=== PATIENT | female | born 1955 | race Caucasian/White ===

== ENCOUNTER → 2016-05-06 | Outpatient (CLI) | payer OTHER ==
[~2016-05-06] MED LIST: 'XANAX0.25 MG PO; ADVAIR 250/501 EA INH; ALBUTEROL TX; ALBUTEROL0.09 MG/A2 IH; ALBUTEROL2.5 MG/0.5 INH; ALBUTEROL2.5 MG/0.5 NEB; AMLODIPINE BESY10 MG PO; AMOXIL500 MG PO; ASCRIPTIN325 MG PO; ASPIRIN325 MG PO; ASPIRIN81 M1 PO; AVELOX400 MG PO; BACTRIM DS 8001 TA1 PO; BUSPIRONE15 MG PO; CARDURA1 MG PO; CIPRO500 MG PO; CIPROFLOXACIN500 MG PO; CLARITIN10 MG PO; COREG25 MG PO; DARVOCET N 1001 TAB PO; DAYPRO600 M1 PO; DELTASONE10 MG PO; DOXYCYCLINE100 M3 PO; FENOFIBRATE160 MG PO; FIORICET 325 MG1 TAB PO; FLEXERIL10 MG PO; FLOVENT 110 M110 MCG INH; GLIPIZIDE PO; HYDROCODONE BIT1 T11 PO; KEFLEX500 MG PO; LEXAPRO10 MG PO; LISINOPRIL-HYDR1 TA2; LISINOPRIL/HCTZ1 TA4 PO; MEDROL DOSEPAK4 MG PO; MOTRIN800 MG PO; MULTIPLE VITAMI1 CAP PO; MULTIVITAMIN1 CTB PO; NICOTINE21 MG/24 H TD; NO MED LIST; OMEPRAZOLE40 MG PO; OMNICEF300 MG PO; OSCAL,OYSTER S500 MG PO; PEPCID20 MG PO; PRAVACHOL20 MG PO; PREDNICOT20 MG PO; PREDNISONE20 MG PO; PRILOSEC40 MG PO; PROAIR HFA0.09 MG/AC IH; PROVENTIL0.09 MG/AC IH; ROBAXIN750 MG PO; ROBITUSSIN AC 10 MG/ PO; ROBITUSSIN AC 110 ML PO; ROMYCIN5 MG/GM OP; SEPTRA DS 800 M1 TAB PO; SIMVASTATIN10 MG PO; SPIRIVA18 MCG IH; SPIRIVA18 MCG PO; SYMBICORT1 AE1 INH; TESSALON PERLE100 M1 PO; TESSALON PERLE200 MG PO; ULTRAM50 MG PO; VIBRAMYCIN100 MG PO; VICODIN 5/500 505 MG PO; VICODIN 500 MG-1 TAB PO; ZITHROMAX Z PA250 MG PO; ZITHROMAX250 MG PO; ZOCOR10 MG PO; ZOFRAN ODT4 MG SL; ZOFRAN4 MG PO; ZYRTEC10 M1 PO; Zofran4 MG PO
[2016-05-06 08:09] LABS: BUN 25 mg/dl (7-24); EST GLOM FILT AFRICAN AMERICAN > 60 ml/min
== END | disposition home or self-care (01) ==
LOC: LAB 07:39 → CT 08:00
PROVIDERS: Family Medicine
DX: R51 Headache (principal); Z85.3 Personal history of malignant neoplasm of breast

== ENCOUNTER → 2017-03-04 | Outpatient (CLI) | payer OTHER | END | disposition home or self-care (01) | LOC: MRI 13:59 | DX: M17.12 Unilateral primary osteoarthritis, left knee (principal) ==

== ENCOUNTER → 2017-04-09 | Outpatient (CLI) | payer OTHER | END | disposition home or self-care (01) | LOC: ORTHO 01:34 | DX: M17.12 Unilateral primary osteoarthritis, left knee (principal) ==

== ENCOUNTER → 2017-05-19 | Outpatient (CLI) | payer OTHER ==
[~2017-05-19] MED LIST changes: +HYCODAN/HYDROMET5 ML PO; +LEVAQUIN500 M2 PO; +MUCINEX1200 M1 PO; +PREDNISONE20 M1 PO
== END | disposition home or self-care (01) ==
LOC: RAD 09:19
DX: J40 Bronchitis, not specified as acute or chronic (principal); J44.9 Chronic obstructive pulmonary disease, unspecified; E11.9 Type 2 diabetes mellitus without complications; F17.200 Nicotine dependence, unspecified, uncomplicated

== ENCOUNTER 2017-05-20 09:13 | Emergency (ER) | payer OTHER ==
[~2017-05-20] VITALS: Ht 154.9 cm; Wt 90.3 kg
[~2017-05-20 09:13] MED LIST changes: -HYCODAN/HYDROMET5 ML PO; -LEVAQUIN500 M2 PO; -MUCINEX1200 M1 PO; -PREDNISONE20 M1 PO
[2017-05-20] MEDS ORDERED: LEVAQUIN500 M2 PO (09:36)
[2017-05-20] MEDS ORDERED: ALBUTEROL2.5 MG/0.5 INH (11:17)
[2017-05-20] MEDS ORDERED: PREDNISONE20 M1 PO (11:17)
[2017-05-20] MEDS ORDERED: TESSALON PERLE100 M1 PO (11:17)
[2017-05-21] MEDS ORDERED: HYCODAN/HYDROMET5 ML PO (19:57)
[2017-05-21] MEDS ORDERED: MUCINEX1200 M1 PO (19:57)
== END 2017-05-20 11:27 | disposition home or self-care (01) ==
LOC: ED 09:13
DX: J44.9 Chronic obstructive pulmonary disease, unspecified (principal); J40 Bronchitis, not specified as acute or chronic; Z91.041 Radiographic dye allergy status; Z88.8 Allergy status to other drugs, medicaments and biological substances; Z79.899 Other long term (current) drug therapy; Z79.82 Long term (current) use of aspirin

== ENCOUNTER 2017-05-21 19:28 | Emergency (ER) | payer OTHER ==
[~2017-05-21] VITALS: Ht 154.9 cm; Wt 90.3 kg
[~2017-05-21 19:28] MED LIST changes: +LEVAQUIN500 M2 PO; +PREDNISONE20 M1 PO
[2017-05-21] MEDS ORDERED: MUCINEX1200 M1 PO (19:57)
[2017-05-21] MEDS ORDERED: HYCODAN/HYDROMET5 ML PO (19:57)
== END 2017-05-21 20:06 | disposition home or self-care (01) ==
LOC: ED 19:28
DX: E11.65 Type 2 diabetes mellitus with hyperglycemia (principal); R05 Cough; F17.200 Nicotine dependence, unspecified, uncomplicated; Z79.82 Long term (current) use of aspirin; Z88.5 Allergy status to narcotic agent

== ENCOUNTER → 2017-06-02 | Outpatient (CLI) | payer OTHER ==
[~2017-06-02] MED LIST changes: +HYCODAN/HYDROMET5 ML PO; +MUCINEX1200 M1 PO
[2017-06-02 11:53] LABS: BILIRUBIN NEGATIVE (NEGATIVE); BLOOD NEGATIVE (NEGATIVE); CLARITY SL CLOUDY (CLEAR); COLOR YELLOW (YELLOW); GLUCOSE NEGATIVE (NEGATIVE); KETONE NEGATIVE (NEGATIVE); LEUKO ESTERASE NEGATIVE (NEGATIVE); NITRITE NEGATIVE (NEGATIVE); PH 5.5 (5.0-9.0); SPECIFIC GRAVITY 1.015 (1.005-1.030); UROBILINOGEN 0.2 E.U./dl (0.2-1.0)
[2017-06-02 12:03] LABS: BASO # 0.1 10*3/uL (0.0-0.1); BASO % 0.5 % (0.0-1.0); EOS # 0.2 10*3/uL (0.0-0.4); EOS % 1.9 % (1.0-4.0); LYMPH # 2.1 10*3/uL (1.3-4.4); MEAN CELL VOLUME 87.5 fl (81.0-99.0); MEAN CORPUSCULAR HGB 28.4 pg (27.0-31.0); MEAN CORPUSCULAR HGB CONC 32.5 g/dl (33.0-37.0); MEAN PLATELET VOLUME 10.8 fl (9.6-12.3); MONO # 0.8 10*3/uL (0.1-1.0); MONO % 7.5 % (3.0-9.0); NEUT # 7.7 10*3/uL (2.3-7.9); NEUT % 70.2 % (47.0-73.0); PLATELET COUNT AUTOMATED 245 10*3/uL (130-400); RED BLOOD COUNT 4.57 10*6/uL (4.10-5.10); RED CELL DISTRI WIDTH 14.2 % (0-14.5)
[2017-06-02 12:04] LABS: BACTERIA TRACE; EPITHELIAL CELLS 16-20; RBC 0-2 rbc/hpf (0-2)
[2017-06-02 12:26] LABS: ALBUMIN 3.5 gm/dl (3.1-4.5); ALKALINE PHOSPHATASE 90 U/L (45-117); BUN 23 mg/dl (7-24); CHLORIDE 104 mmol/L (98-107); CREATININE 0.96 mg/dL (0.55-1.02); POTASSIUM 4.5 mmol/L (3.5-5.1); SGOT/AST 19 IU/L (3-35); SGPT/ALT 29 U/L (12-78); SODIUM 138 mmol/L (136-145)
== END | disposition home or self-care (01) ==
LOC: LAB 09:57
PROVIDERS: Orthopaedic Surgery
DX: Z01.818 Encounter for other preprocedural examination (principal); S83.242A Other tear of medial meniscus, current injury, left knee, initial encounter; J45.909 Unspecified asthma, uncomplicated; J44.9 Chronic obstructive pulmonary disease, unspecified; X58.XXXA Exposure to other specified factors, initial encounter; Y93.89 Activity, other specified; Y92.89 Other specified places as the place of occurrence of the external cause; Y99.8 Other external cause status

== ENCOUNTER → 2017-06-19 | Day surgery (SDC) | payer OTHER ==
[~2017-06-19] MED LIST changes: +PERCOCET 5-3251 EACH PO; +ZOFRAN 4 MG ED2 TAB PO
[2017-06-19 08:00] VITALS: BP 157/86
[2017-06-19 11:20] VITALS: BP 153/80
[2017-06-19 11:35] VITALS: BP 133/69
[2017-06-19 11:50] VITALS: BP 155/67
[2017-06-19 12:05] VITALS: BP 161/75
[2017-06-19 12:20] VITALS: BP 144/74
== END | disposition home or self-care (01) ==
LOC: CANPRESDC → SDC 06-02 10:15
DX: S83.282A Other tear of lateral meniscus, current injury, left knee, initial encounter (principal); S83.242A Other tear of medial meniscus, current injury, left knee, initial encounter; X58.XXXA Exposure to other specified factors, initial encounter; Y93.89 Activity, other specified; Y92.89 Other specified places as the place of occurrence of the external cause; Y99.8 Other external cause status; M94.262 Chondromalacia, left knee; F17.210 Nicotine dependence, cigarettes, uncomplicated; I10 Essential (primary) hypertension; K21.9 Gastro-esophageal reflux disease without esophagitis; F41.9 Anxiety disorder, unspecified; E78.00 Pure hypercholesterolemia, unspecified; E11.9 Type 2 diabetes mellitus without complications; J43.9 Emphysema, unspecified; F32.9 Major depressive disorder, single episode, unspecified; Z90.710 Acquired absence of both cervix and uterus; Z82.49 Family history of ischemic heart disease and other diseases of the circulatory system

== ENCOUNTER 2017-07-13 10:07 | Emergency (ER) | payer OTHER ==
[~2017-07-13] VITALS: Ht 152.4 cm; Wt 118.8 kg
[2017-07-13] MEDS ORDERED: CEPHALEXIN500 M1 PO ×2 (10:20→11:01)
[2017-07-13] MEDS ORDERED: NYSTATIN CREAM15 GM T ×2 (10:20→11:01)
[2017-07-13] MEDS ORDERED: SEPTDS PO ×2 (10:20→11:01)
== END 2017-07-13 10:44 | disposition home or self-care (01) ==
LOC: ED 10:07
DX: N61.1 Abscess of the breast and nipple (principal); L30.4 Erythema intertrigo; I10 Essential (primary) hypertension; F17.200 Nicotine dependence, unspecified, uncomplicated; Z90.710 Acquired absence of both cervix and uterus; Z88.8 Allergy status to other drugs, medicaments and biological substances; Z91.018 Allergy to other foods

== ENCOUNTER 2017-09-14 09:53 | Emergency (ER) | payer OTHER ==
[~2017-09-14] VITALS: Wt 93.4 kg
[~2017-09-14 09:53] MED LIST changes: +CEPHALEXIN500 M1 PO; +NYSTATIN CREAM15 GM T; +SEPTDS PO
[2017-09-14 10:26] LABS: BASO # 0.1 10*3/uL (0.0-0.1); BASO % 0.6 % (0.0-1.0); EOS # 0.2 10*3/uL (0.0-0.4); EOS % 1.9 % (1.0-4.0); HEMATOCRIT 43.1 % (37.0-47.0); HEMOGLOBIN 13.9 g/dl (12.0-16.0); LYMPH # 1.5 10*3/uL (1.3-4.4); LYMPH % 19.7 % (27.0-41.0); MEAN CELL VOLUME 86.4 fl (81.0-99.0); MEAN CORPUSCULAR HGB 27.9 pg (27.0-31.0); MEAN CORPUSCULAR HGB CONC 32.3 g/dl (33.0-37.0); MEAN PLATELET VOLUME 10.7 fl (9.6-12.3); MONO # 0.7 10*3/uL (0.1-1.0); MONO % 8.4 % (3.0-9.0); NEUT # 5.3 10*3/uL (2.3-7.9); NEUT % 68.8 % (47.0-73.0); PLATELET COUNT AUTOMATED 207 10*3/uL (130-400); RED BLOOD COUNT 4.99 10*6/uL (4.10-5.10); RED CELL DISTRI WIDTH 13.7 % (0-14.5); WHITE BLOOD COUNT 7.8 10*3/uL (4.8-10.8)
[2017-09-14 10:41] LABS: ALBUMIN 3.6 gm/dl (3.1-4.5); ALKALINE PHOSPHATASE 114 U/L (45-117); BUN 22 mg/dl (7-24); CHLORIDE 103 mmol/L (98-107); CREATININE 0.86 mg/dL (0.55-1.02); POTASSIUM 4.4 mmol/L (3.5-5.1); SGOT/AST 14 IU/L (3-35); SGPT/ALT 29 U/L (12-78); SODIUM 139 mmol/L (136-145); TOTAL PROTEIN 6.9 gm/dL (6.4-8.2)
[2017-09-14] MEDS ORDERED: ZESTORETIC 20-1 EACH PO (10:59)
[2017-09-14] MEDS ORDERED: METFORMIN HCL500 MG PO (11:00)
== END 2017-09-14 11:14 | disposition home or self-care (01) ==
LOC: ED 09:53
PROVIDERS: Emergency Medicine
DX: I10 Essential (primary) hypertension (principal); J44.1 Chronic obstructive pulmonary disease with (acute) exacerbation; R73.9 Hyperglycemia, unspecified; Z88.5 Allergy status to narcotic agent; Z88.8 Allergy status to other drugs, medicaments and biological substances; Z91.041 Radiographic dye allergy status; Z79.84 Long term (current) use of oral hypoglycemic drugs; Z79.82 Long term (current) use of aspirin; Z79.899 Other long term (current) drug therapy; Z90.710 Acquired absence of both cervix and uterus

== ENCOUNTER → 2017-09-29 | Outpatient (CLI) | payer OTHER ==
[~2017-09-29] MED LIST changes: +METFORMIN HCL500 MG PO; +ZESTORETIC 20-1 EACH PO
== END | disposition home or self-care (01) ==
LOC: RAD 08:00
DX: K21.9 Gastro-esophageal reflux disease without esophagitis (principal); K44.9 Diaphragmatic hernia without obstruction or gangrene; K22.8 Other specified diseases of esophagus

== ENCOUNTER → 2017-09-30 | Outpatient (CLI) | payer OTHER | END | disposition home or self-care (01) | LOC: US 03:58 | DX: I70.203 Unspecified atherosclerosis of native arteries of extremities, bilateral legs (principal) ==

== ENCOUNTER → 2017-10-06 | Outpatient (CLI) | payer OTHER | END | disposition home or self-care (01) | LOC: ORTHO 01:59 | DX: M17.12 Unilateral primary osteoarthritis, left knee (principal) ==

== ENCOUNTER → 2017-12-25 | Outpatient (CLI) | payer OTHER ==
[~2017-12-25] MED LIST changes: +ASPIRIN325 M2 PO; +BREO ELLIPTA 21 EACH INH; +CARDURA1 M1 PO; +CARVEDILOL25 MG PO; +DOXAZOSIN MESYLA1 MG PO; +EXEMESTANE25 M2 PO; +GLYBURIDE5 MG PO; +HYDR25T PO; +LEXAPRO20 MG PO; +LISINOPRIL20 MG PO; +LOPID600 M1 PO; +MUCINEX ER600 MG PO; +OSCAL/D,OYSTER250 MG PO; +OYSTER SHELL C1 EAC2 PO; +PREDNISONE10 MG PO; +PROAIR HFA8.5 GM INH; +PROPRANOLOL HCL10 MG PO; +TESSALON PERLE100 MG PO; +TOPAMAX25 M3 PO; +VITAMIN D22000 UNIT PO; +ZOCOR40 MG PO
== END | disposition home or self-care (01) ==
LOC: MRI 09:17
DX: R51 Headache (principal)

== ENCOUNTER 2018-01-28 09:56 | Emergency (ER) | payer OTHER ==
[~2018-01-28] VITALS: Wt 93.0 kg
[~2018-01-28 09:56] MED LIST changes: -DOXAZOSIN MESYLA1 MG PO; -LOPID600 M1 PO; -OYSTER SHELL C1 EAC2 PO; -PROPRANOLOL HCL10 MG PO; -TOPAMAX25 M3 PO; -ZOCOR40 MG PO
== END 2018-01-28 10:16 | disposition home or self-care (01) ==
LOC: ED 09:56
DX: I10 Essential (primary) hypertension (principal); R51 Headache; R25.1 Tremor, unspecified; J44.9 Chronic obstructive pulmonary disease, unspecified; E11.9 Type 2 diabetes mellitus without complications; K21.9 Gastro-esophageal reflux disease without esophagitis; E78.5 Hyperlipidemia, unspecified; E66.9 Obesity, unspecified; F17.210 Nicotine dependence, cigarettes, uncomplicated; Z90.710 Acquired absence of both cervix and uterus

== ENCOUNTER 2018-02-09 17:57 | Emergency (ER) | payer OTHER ==
[~2018-02-09] VITALS: Ht 154.9 cm; Wt 93.0 kg
[2018-02-09 18:37] LABS: BASO % 0.4 % (0.0-1.0); EOS # 0.1 10*3/uL (0.0-0.4); EOS % 1.5 % (1.0-4.0); HEMATOCRIT 38.6 % (37.0-47.0); HEMOGLOBIN 12.7 g/dl (12.0-16.0); LYMPH # 1.8 10*3/uL (1.3-4.4); LYMPH % 24.9 % (27.0-41.0); MEAN CELL VOLUME 88.9 fl (81.0-99.0); MEAN CORPUSCULAR HGB 29.3 pg (27.0-31.0); MEAN CORPUSCULAR HGB CONC 32.9 g/dl (33.0-37.0); MEAN PLATELET VOLUME 10.8 fl (9.6-12.3); MONO # 0.7 10*3/uL (0.1-1.0); MONO % 9.8 % (3.0-9.0); NEUT # 4.5 10*3/uL (2.3-7.9); NEUT % 62.4 % (47.0-73.0); PLATELET COUNT AUTOMATED 203 10*3/uL (130-400); RED BLOOD COUNT 4.34 10*6/uL (4.10-5.10); RED CELL DISTRI WIDTH 14.4 % (0-14.5); WHITE BLOOD COUNT 7.2 10*3/uL (4.8-10.8)
[2018-02-09 18:52] LABS: ALBUMIN 3.3 gm/dl (3.1-4.5); ALKALINE PHOSPHATASE 95 U/L (45-117); BUN 23 mg/dl (7-24); CHLORIDE 106 mmol/L (98-107); CREATININE 1.04 mg/dL (0.55-1.02); LIPASE 188 U/L (73-393); POTASSIUM 4.1 mmol/L (3.5-5.1); SGOT/AST 14 IU/L (3-35); SGPT/ALT 30 U/L (12-78); SODIUM 140 mmol/L (136-145); TOTAL PROTEIN 6.6 gm/dL (6.4-8.2)
[2018-02-09 18:54] LABS: BILIRUBIN NEGATIVE (NEGATIVE); CLARITY CLOUDY (CLEAR); COLOR YELLOW (YELLOW); GLUCOSE NEGATIVE (NEGATIVE); KETONE NEGATIVE (NEGATIVE)
[2018-02-09 18:55] LABS: BLOOD NEGATIVE (NEGATIVE); LEUKO ESTERASE NEGATIVE (NEGATIVE); NITRITE NEGATIVE (NEGATIVE); PH 5.5 (5.0-9.0)
[2018-02-09 18:59] LABS: RBC 0-2 rbc/hpf (0-2)
[2018-02-09 19:00] LABS: BACTERIA 2+; CALCIUM OXALATE CRYSTALS 1+; EPITHELIAL CELLS 16-20; MUCOUS TRACE
== END 2018-02-09 19:25 | disposition home or self-care (01) ==
LOC: ED 17:57
PROVIDERS: Nurse Practitioner Family
DX: R53.83 Other fatigue (principal); K21.9 Gastro-esophageal reflux disease without esophagitis; E11.9 Type 2 diabetes mellitus without complications; E78.5 Hyperlipidemia, unspecified; I10 Essential (primary) hypertension; F17.210 Nicotine dependence, cigarettes, uncomplicated; Z91.041 Radiographic dye allergy status; Z88.8 Allergy status to other drugs, medicaments and biological substances; Z88.6 Allergy status to analgesic agent; Z91.018 Allergy to other foods; Z79.82 Long term (current) use of aspirin; Z79.899 Other long term (current) drug therapy; Z90.710 Acquired absence of both cervix and uterus; Z79.84 Long term (current) use of oral hypoglycemic drugs

== ENCOUNTER 2018-03-12 15:28 | Emergency (ER) | payer OTHER ==
[~2018-03-12] VITALS: Ht 154.9 cm; Wt 92.1 kg
[2018-03-12] MEDS ORDERED: LOPID600 M1 PO (15:37)
[2018-03-12] MEDS ORDERED: TOPAMAX25 M3 PO (15:37)
[2018-03-12] MEDS ORDERED: OYSTER SHELL C1 EAC2 PO (15:38)
[2018-03-12] MEDS ORDERED: PROPRANOLOL HCL10 MG PO (15:39)
[2018-03-12] MEDS ORDERED: ZOCOR40 MG PO (15:40)
[2018-03-12] MEDS ORDERED: DOXAZOSIN MESYLA1 MG PO (15:43)
[2018-03-12 16:03] LABS: BASO % 0.3 % (0.0-1.0); EOS % 0.4 % (1.0-4.0); HEMATOCRIT 44.4 % (37.0-47.0); HEMOGLOBIN 14.7 g/dl (12.0-16.0); LYMPH # 1.7 10*3/uL (1.3-4.4); LYMPH % 16.6 % (27.0-41.0); MEAN CELL VOLUME 87.1 fl (81.0-99.0); MEAN CORPUSCULAR HGB 28.8 pg (27.0-31.0); MEAN CORPUSCULAR HGB CONC 33.1 g/dl (33.0-37.0); MONO # 0.7 10*3/uL (0.1-1.0); NEUT # 7.7 10*3/uL (2.3-7.9); NEUT % 75.1 % (47.0-73.0); PLATELET COUNT AUTOMATED 239 10*3/uL (130-400); RED CELL DISTRI WIDTH 13.3 % (0-14.5); WHITE BLOOD COUNT 10.2 10*3/uL (4.8-10.8)
[2018-03-12 16:18] LABS: ALKALINE PHOSPHATASE 112 U/L (45-117); BUN 24 mg/dl (7-24); CHLORIDE 103 mmol/L (98-107); CREATININE 1.07 mg/dL (0.55-1.02); SGOT/AST 14 IU/L (3-35); SGPT/ALT 37 U/L (12-78); SODIUM 137 mmol/L (136-145); TOTAL PROTEIN 7.8 gm/dL (6.4-8.2)
[2018-03-12 16:26] LABS: THYROID STIM HORMONE (HS) 0.828 uIU/ml (0.358-4.75)
[2018-03-12 16:33] LABS: BILIRUBIN NEGATIVE (NEGATIVE); BLOOD NEGATIVE (NEGATIVE); CLARITY SL CLOUDY (CLEAR); COLOR YELLOW (YELLOW); GLUCOSE 2+ (NEGATIVE); KETONE NEGATIVE (NEGATIVE); LEUKO ESTERASE NEGATIVE (NEGATIVE); NITRITE NEGATIVE (NEGATIVE); PH 7.5 (5.0-9.0); UROBILINOGEN 0.2 E.U./dl (0.2-1.0)
[2018-03-12 16:40] LABS: BACTERIA 2+; EPITHELIAL CELLS 16-20
== END 2018-03-12 17:20 | disposition home or self-care (01) ==
LOC: ED 15:28
PROVIDERS: Emergency Medicine
DX: R53.83 Other fatigue (principal); R53.1 Weakness; R26.9 Unspecified abnormalities of gait and mobility; R25.1 Tremor, unspecified; F17.210 Nicotine dependence, cigarettes, uncomplicated; Z91.041 Radiographic dye allergy status; Z88.6 Allergy status to analgesic agent; Z88.8 Allergy status to other drugs, medicaments and biological substances; Z91.018 Allergy to other foods; Z79.899 Other long term (current) drug therapy; Z79.82 Long term (current) use of aspirin

== ENCOUNTER 2018-06-18 11:01 | Emergency (ER) | payer OTHER ==
[~2018-06-18] VITALS: Ht 154.9 cm; Wt 91.2 kg
--- NOTE | ~2018-06-18 | EKG ---
[place], [place] ELECTROCARDIOGRAM REPORT NAME: JAYLAN MORA UNIT #: [id number] ROOM: [facility] RE[facility] BIRTHDATE: [birth year] [facility] Test Date: 2018-06-18 Test Time: 11:07:54 Pat Name: JAYLAN MORA Department: Room: [facility] Gender: F Neck Fitter: [id number] : 1955 Requested By: HODAN LANDA Order Number: [id number] Reading MD: Jonathan Bhagat MD Measurements Intervals [place] Rate: 80 P: -12 CA: 188 QRS: 40 QRSD: 83 T: 140 QT: 362 QTc: 418 Interpretive Statements Sinus rhythm Anterior infarct, old Abnormal T, consider ischemia, lateral leads Compared to ECG 06/04/2018 11:46:41 T-wave abnormality now present Possible ischemia now present Myocardial infarct finding still present Electronically Signed On 06-18-2018 17:50:51 PST by Jonathan Bhagat MD CM:EKGRPT:ELECTROCARDIOGRAM REPORT [id number] DRAFT REPORT HODAN LANDA M.D.
[~2018-06-18 11:01] MED LIST changes: +COZAAR25 M1 PO; +DECADRON1 MG PO; +DOXAZOSIN MESYLA1 MG PO; +DOXAZOSIN2 MG PO; +LEVEMIR100 UNIT/1 SC; +LIPITOR40 MG PO; +LOPID600 M1 PO; +Lantus SC; +NORVASC10 MG PO; +NOVOLIN 70100 UNIT/1 SQ; +NOVOLOG FL100 UNIT/1 SQ; +OMEPRAZOLE20 M2 PO; +OYSTER SHELL C1 EAC2 PO; +PROPRANOLOL HCL10 MG PO; +TOPAMAX25 M3 PO; +VITAMIN D32000 UNI1 PO; +ZOCOR40 MG PO
[2018-06-18 11:33] LABS: BASO % 0.3 % (0.0-1.0); EOS # 0.2 10*3/uL (0.0-0.4); EOS % 2.1 % (1.0-4.0); HEMATOCRIT 39.3 % (37.0-47.0); HEMOGLOBIN 12.9 g/dl (12.0-16.0); LYMPH # 2.7 10*3/uL (1.3-4.4); LYMPH % 31.4 % (27.0-41.0); MEAN CELL VOLUME 86.4 fl (81.0-99.0); MEAN CORPUSCULAR HGB 28.4 pg (27.0-31.0); MEAN CORPUSCULAR HGB CONC 32.8 g/dl (33.0-37.0); MEAN PLATELET VOLUME 10.8 fl (9.6-12.3); MONO # 0.5 10*3/uL (0.1-1.0); NEUT # 5.1 10*3/uL (2.3-7.9); NEUT % 59.3 % (47.0-73.0); PLATELET COUNT AUTOMATED 223 10*3/uL (130-400); RED BLOOD COUNT 4.55 10*6/uL (4.10-5.10); RED CELL DISTRI WIDTH 13.5 % (0-14.5); WHITE BLOOD COUNT 8.7 10*3/uL (4.8-10.8)
[2018-06-18 11:45] LABS: ACT PARTIAL THROMBO TIME 20.7 SECONDS (20.8-31.5)
[2018-06-18 11:57] LABS: ALBUMIN 3.5 gm/dl (3.1-4.5); ALKALINE PHOSPHATASE 102 U/L (45-117); BUN 29 mg/dl (7-24); CHLORIDE 98 mmol/L (98-107); CREATININE 0.95 mg/dL (0.55-1.02); POTASSIUM 3.9 mmol/L (3.5-5.1); SGOT/AST 17 IU/L (3-35); SGPT/ALT 41 U/L (12-78); SODIUM 136 mmol/L (136-145); TOTAL PROTEIN 6.9 gm/dL (6.4-8.2)
== END 2018-06-18 14:13 | disposition home or self-care (01) ==
LOC: ED 11:01
PROVIDERS: Emergency Medicine
DX: R07.9 Chest pain, unspecified (principal); R06.02 Shortness of breath; R05 Cough; J44.9 Chronic obstructive pulmonary disease, unspecified; K21.9 Gastro-esophageal reflux disease without esophagitis; E11.9 Type 2 diabetes mellitus without complications; I10 Essential (primary) hypertension; E66.9 Obesity, unspecified; F17.210 Nicotine dependence, cigarettes, uncomplicated; Z91.041 Radiographic dye allergy status; Z88.6 Allergy status to analgesic agent; Z88.8 Allergy status to other drugs, medicaments and biological substances; Z79.899 Other long term (current) drug therapy; Z79.82 Long term (current) use of aspirin

== ENCOUNTER 2018-08-08 18:25 | Emergency (ER) | payer OTHER ==
[~2018-08-08] VITALS: Wt 91.6 kg
--- NOTE | ~2018-08-08 | EKG ---
[place], [place] ELECTROCARDIOGRAM REPORT NAME: JAYLAN MORA UNIT #: [id number] ROOM: [facility] BIRTHDATE: [birth year] [facility] Test Date: 2018-08-08 Test Time: 19:34:42 Pat Name: JAYLAN MORA Department: ER Room: Gender: F Senior Hris Analyst: NIKOLAI : 1955 Requested By: JENN OWENS Order Number: [id number] Reading MD: Jocelyn Lerner MD Measurements Intervals [place] Rate: 69 P: 73 AK: 191 QRS: 50 QRSD: 88 T: 109 QT: 414 QTc: 444 Interpretive Statements Sinus rhythm Abnormal T, consider ischemia, lateral leads Minimal ST elevation, anterior leads Compared to ECG 06/18/2018 11:07:54 ST (T wave) deviation now present Myocardial infarct finding no longer present T-wave abnormality still present Possible ischemia still present Electronically Signed On 08-10-2018 10:08:09 PDT by Jocelyn Lerner MD CM:EKGRPT:ELECTROCARDIOGRAM REPORT [id number] J[address] DRAFT REPORT JENN OWENS DO
[2018-08-08 19:31] LABS: BASO % 0.4 % (0.0-1.0); EOS # 0.2 10*3/uL (0.0-0.4); EOS % 2.8 % (1.0-4.0); HEMATOCRIT 40.1 % (37.0-47.0); HEMOGLOBIN 12.8 g/dl (12.0-16.0); LYMPH % 25.1 % (27.0-41.0); MEAN CELL VOLUME 87.2 fl (81.0-99.0); MEAN CORPUSCULAR HGB 27.8 pg (27.0-31.0); MEAN CORPUSCULAR HGB CONC 31.9 g/dl (33.0-37.0); MEAN PLATELET VOLUME 10.9 fl (9.6-12.3); MONO # 0.8 10*3/uL (0.1-1.0); MONO % 9.5 % (3.0-9.0); NEUT % 61.5 % (47.0-73.0); PLATELET COUNT AUTOMATED 199 10*3/uL (130-400); RED CELL DISTRI WIDTH 13.3 % (0-14.5); WHITE BLOOD COUNT 8.1 10*3/uL (4.8-10.8)
[2018-08-08 19:40] LABS: BILIRUBIN NEGATIVE (NEGATIVE); BLOOD NEGATIVE (NEGATIVE); CLARITY SL CLOUDY (CLEAR); COLOR YELLOW (YELLOW); GLUCOSE NEGATIVE (NEGATIVE); KETONE TRACE (NEGATIVE); LEUKO ESTERASE NEGATIVE (NEGATIVE); NITRITE NEGATIVE (NEGATIVE); SPECIFIC GRAVITY 1.025 (1.005-1.030)
[2018-08-08 19:48] LABS: ALBUMIN 3.5 gm/dl (3.1-4.5); ALKALINE PHOSPHATASE 117 U/L (45-117); BUN 19 mg/dl (7-24); CHLORIDE 107 mmol/L (98-107); CREATININE 0.92 mg/dL (0.55-1.02); LIPASE 170 U/L (73-393); POTASSIUM 3.7 mmol/L (3.5-5.1); SGOT/AST 19 IU/L (3-35); SGPT/ALT 43 U/L (12-78); SODIUM 141 mmol/L (136-145); TOTAL PROTEIN 6.9 gm/dL (6.4-8.2)
[2018-08-08 19:49] LABS: BACTERIA 2+; EPITHELIAL CELLS 16-20; MUCOUS TRACE; RBC 0-2 rbc/hpf (0-2)
[2018-08-08 19:52] LABS: TROPONIN I < 0.015 ng/ml (<0.045)
== END 2018-08-08 21:27 | disposition left against medical advice (07) ==
LOC: ED 18:25
PROVIDERS: Emergency Medicine
DX: R10.11 Right upper quadrant pain (principal); J44.9 Chronic obstructive pulmonary disease, unspecified; K21.9 Gastro-esophageal reflux disease without esophagitis; I10 Essential (primary) hypertension; E11.40 Type 2 diabetes mellitus with diabetic neuropathy, unspecified; F17.210 Nicotine dependence, cigarettes, uncomplicated; Z91.041 Radiographic dye allergy status; Z88.8 Allergy status to other drugs, medicaments and biological substances; Z88.6 Allergy status to analgesic agent; Z91.018 Allergy to other foods; Z79.899 Other long term (current) drug therapy; Z79.4 Long term (current) use of insulin; Z79.82 Long term (current) use of aspirin; Z90.710 Acquired absence of both cervix and uterus

== ENCOUNTER → 2018-09-10 | Outpatient (CLI) | payer OTHER ==
[2018-09-10 09:20] LABS: FREE T4 0.96 ng/dl (0.76-1.46)
[2018-09-10 09:25] LABS: THYROID STIM HORMONE (HS) 1.75 uIU/ml (0.358-4.75)
[2018-09-11 09:06] LABS: CREATININE,URINE 95.6 mg/dL (Not Estab.); MICRO ALBUMIN/CRE RATIO 25.9 (0.0-30.0)
[2018-09-12 01:09] LABS: HUMAN GROWTH HORMONE 0.1 ng/mL (0.0-10.0)
[2018-09-16 06:14] LABS: METANEPHRINE, PLASMA <10 pg/mL (0-62); NORMETANEPHRINE, PLASMA <10 pg/mL (0-145)
[2018-09-16 10:06] LABS: ALDOSTERONE/RENIN RATIO >39.5 (0.0-30.0); RENIN ACTIVITY (PLASMA) <0.167 ng/mL/hr (0.167-5.380)
== END | disposition home or self-care (01) ==
LOC: LAB 08:16
PROVIDERS: Internal Medicine Endocrinology, Diabetes & Metabolism
DX: E11.9 Type 2 diabetes mellitus without complications (principal); E55.9 Vitamin D deficiency, unspecified; D35.00 Benign neoplasm of unspecified adrenal gland

== ENCOUNTER → 2018-09-19 | Outpatient (CLI) | payer OTHER | END | disposition home or self-care (01) | LOC: US 08:34 | DX: K76.0 Fatty (change of) liver, not elsewhere classified (principal); Z90.710 Acquired absence of both cervix and uterus ==

== ENCOUNTER 2019-01-31 17:42 | Inpatient (IN) | payer OTHER ==
[~2019-01-31] VITALS: Ht 154.9 cm; Wt 84.0 kg
[2019-01-31 17:42] VITALS: BP 172/72
[2019-01-31 18:04] LABS: BASO % 0.3 % (0.0-1.0); EOS # 0.2 10*3/uL (0.0-0.4); EOS % 2.5 % (1.0-4.0); HEMATOCRIT 38.7 % (37.0-47.0); HEMOGLOBIN 12.5 g/dl (12.0-16.0); LYMPH # 2.8 10*3/uL (1.3-4.4); LYMPH % 31.4 % (27.0-41.0); MEAN CELL VOLUME 86.2 fl (81.0-99.0); MEAN CORPUSCULAR HGB 27.8 pg (27.0-31.0); MEAN CORPUSCULAR HGB CONC 32.3 g/dl (33.0-37.0); MEAN PLATELET VOLUME 10.7 fl (9.6-12.3); MONO # 0.7 10*3/uL (0.1-1.0); MONO % 7.7 % (3.0-9.0); NEUT # 5.1 10*3/uL (2.3-7.9); NEUT % 57.6 % (47.0-73.0); PLATELET COUNT AUTOMATED 220 10*3/uL (130-400); RED BLOOD COUNT 4.49 10*6/uL (4.10-5.10); RED CELL DISTRI WIDTH 15.9 % (0-14.5); WHITE BLOOD COUNT 8.9 10*3/uL (4.8-10.8)
[2019-01-31 18:15] LABS: ACT PARTIAL THROMBO TIME 24.8 SECONDS (20.0-32.1); INTERNATIONAL NORM RATIO 0.9 (2.0-3.5)
[2019-01-31 18:19] LABS: ALBUMIN 3.5 gm/dl (3.1-4.5); ALKALINE PHOSPHATASE 58 U/L (45-117); BUN 26 mg/dl (7-24); CHLORIDE 104 mmol/L (98-107); POTASSIUM 3.8 mmol/L (3.5-5.1); SGOT/AST 10 IU/L (3-35); SGPT/ALT 20 U/L (12-78); SODIUM 137 mmol/L (136-145); TOTAL PROTEIN 6.6 gm/dL (6.4-8.2)
[2019-01-31 18:20] LABS: TROPONIN I < 0.015 ng/ml (<0.045)
[2019-01-31 18:59] VITALS: BP 164/69
[2019-01-31 19:28] VITALS: BP 154/72
--- NOTE | 2019-01-31 19:30 | NUR ---
PATIENT RESTING IN BED. NO COMPLAINTS AT THIS TIME.
[2019-01-31 20:45] VITALS: BP 150/74
--- NOTE | 2019-01-31 20:45 | NUR ---
A 63, admitted to , under the services of DEREK Bowen DO with a diagnosis of CHEST PAIN. Chief complaint is CHEST PAIN. Patient arrived via wheel chair from ER. Monitor applied. Initial assessment completed. Vital signs taken and recorded. DEREK BOWEN DO notified of admission to the unit. Orders received. See assessment for past medical history, medications and allergies. Patient and/or family oriented to unit. [facility] visitation policy reviewed. Clothing/patient valuable form completed. LISA COTTON
[2019-01-31] MEDS ORDERED: COREG25 MG PO (21:28)
[2019-01-31] MEDS ORDERED: OMNICEF300 MG PO (21:29)
[2019-01-31] MEDS ORDERED: METFORMIN XR500 MG PO (21:30)
[2019-01-31] MEDS ORDERED: TRULICITY1.5 MG/0.5 SC (21:31)
--- NOTE | 2019-01-31 22:25 | NUR ---
DR OSEGUERA AWARE THAT PT HOME MEDICATIONS ARE UP TO DATE.
[2019-02-01] VITALS: BP 164/60
--- NOTE | 2019-02-01 00:26 | NUR ---
PATIENT RESTING WITH EYES CLOSED. RESPIRATIONS EASY AND UNLABORED. BED ALARM ON, CALL LIGHT WITHIN REACH. WILL MONITOR.
[2019-02-01 06:40] LABS: CHOLESTEROL 121 mg/dL (<200); HDL CHOLESTEROL 32 mg/dl (40-60); LDL CHOLESTEROL 65 mg/dL (9-159); TRIGLYCERIDES 121 mg/dl (<150); VLDL CHOLESTEROL 24 mg/dL (6-40)
--- NOTE | 2019-02-01 06:41 | NUR ---
NEW CONSULT CALLED TO [facility]
[2019-02-01 08:15] VITALS: BP 142/86
--- NOTE | 2019-02-01 09:00 | NUR ---
Buttonhole Machine Operator in to talk to patient. Patient states lives at home with and sister in law. There are few steps in the home. Physician: sammi huitron [facility]acy: [facility] Home health services: none Patient's level of ADLs: MINIMAL ASSIST Patient has working utilities: all working DME: walker, wheelcahir, cane Follow-up physician's appointment after d/c: will be made by hospitalist nurse director upon discharge Does patient want to access PORTAL?: no Discharge plan discussed with patient, she states she lives at home with and sister in law, she uses cane or walker for ambulation and is independent in adls, she states she will return home when medically stable and denies any home needs AHSAN PATINO
--- NOTE | 2019-02-01 11:53 | NUR ---
PT LEAVING FLOOR FOR STRESS TEST VIA W/C AT THIS TIME.
[2019-02-01 12:00] VITALS: BP 158/76
--- NOTE | 2019-02-01 12:47 | NUR ---
INFORMRED SIGNED CONSENT OBTAINED FOR LEXISCAN STRESS TEST WITH DR PLASENCIA. RESTING EKG NSR WITH PVC HR 63 GP 154/82, PULSE OX 95% LUNGS CLEAR. PT COMPLETED ONE MINUTE OF A LEXISCAN SCAN WITH PT RECEIVING LEXISCAN 0.4MG IV OVER 10 SECONDS. NO ARRYTHMIAS NOTED. NO ST CHANGES SEEN. PT COMPLAINT OF "HAMMERING ON HER CHEST". LAST RECOVERY HR OF 93 BP 138/68. PT IN STABLE CONDITION, AWAITING NUCLEAR IMAGES.
[2019-02-01 16:00] VITALS: BP 128/49
[2019-02-01 20:00] VITALS: BP 138/57
--- NOTE | 2019-02-01 22:31 | NUR ---
DR. MCCARTHY NOTIFIED OF PT'S CURRENT DIET IS REGLAR AND PT IS DIABETIC. TO CHANGE TO 1800 ADA.
[2019-02-02] VITALS: BP 133/53
--- NOTE | 2019-02-02 | NUR ---
SLEEPING. NO DISTRESS NOTED. RESPIRATIONS EASY. VSS. CALL LIGHT WITHIN REACH
--- NOTE | 2019-02-02 04:51 | NUR ---
24 HR chart check completed.
--- NOTE | 2019-02-02 06:00 | NUR ---
SLEPT THROUGHOUT NIGHT WITH NO DISTRESS NOTED. RESPIRATIONS EASY. CALL LIGHT WITHIN REACH. NO VOICED COMPLAINTS THIS SHIFT
[2019-02-02 08:00] VITALS: BP 147/67
[2019-02-02] MEDS ORDERED: FENOFIBRATE160 MG PO (08:17)
[2019-02-02] MEDS ORDERED: Zestril,Prinivi40 MG PO (08:18)
[2019-02-02] MEDS ORDERED: IMDUR SA30 MG PO (08:18)
--- NOTE | 2019-02-02 09:00 | NUR ---
case management visits with patient, she states she will return home when able and denies any home needs
--- NOTE | 2019-02-02 09:22 | NUR ---
Discharge instructions reviewed with patient/family. Patient receptive and verbalizes understanding. Follow-up care arranged. Written instructions given to patient/family. JO ANN HEWITT
--- NOTE | 2019-02-02 09:30 | NUR ---
Another Multi-Disciplinary Team meeting was held on 02/02/19, for the purpose of discharge planning. The patient was referred to the following services for follow-up: patient will return home today and no home needs AHSAN PATINO
== END 2019-02-02 09:22 | disposition home or self-care (01) | DRG 203 ==
LOC: ED 17:42 → EDHOLD 18:27 → 4E 18:27 → EDHOLD 18:37 → 4E 20:13
PROVIDERS: Emergency Medicine; Student in an Organized Health Care Education/Training Program; ADMIT Emergency Medicine
PROC: 4A02XM4 Measurement of Cardiac Total Activity, External Approach (ICD-10-PCS; principal; 2019-02-01)
PROC: 3E073KZ Introduction of Other Diagnostic Substance into Coronary Artery, Percutaneous Approach (ICD-10-PCS; 2019-02-01)
DX: M94.0 Chondrocostal junction syndrome [Tietze] (principal); K21.9 Gastro-esophageal reflux disease without esophagitis; J96.11 Chronic respiratory failure with hypoxia; E11.40 Type 2 diabetes mellitus with diabetic neuropathy, unspecified; J44.9 Chronic obstructive pulmonary disease, unspecified; E11.65 Type 2 diabetes mellitus with hyperglycemia; I10 Essential (primary) hypertension; E66.9 Obesity, unspecified; E78.00 Pure hypercholesterolemia, unspecified; F32.9 Major depressive disorder, single episode, unspecified; F17.210 Nicotine dependence, cigarettes, uncomplicated; Z79.4 Long term (current) use of insulin; Z88.6 Allergy status to analgesic agent; Z91.041 Radiographic dye allergy status; Z91.018 Allergy to other foods; Z88.8 Allergy status to other drugs, medicaments and biological substances; Z99.81 Dependence on supplemental oxygen; Z92.3 Personal history of irradiation; Z85.3 Personal history of malignant neoplasm of breast; Z87.01 Personal history of pneumonia (recurrent); Z98.49 Cataract extraction status, unspecified eye; Z90.710 Acquired absence of both cervix and uterus; Z82.49 Family history of ischemic heart disease and other diseases of the circulatory system; Z82.3 Family history of stroke; Z80.0 Family history of malignant neoplasm of digestive organs; Z79.82 Long term (current) use of aspirin; Z79.899 Other long term (current) drug therapy; Z71.6 Tobacco abuse counseling; Z68.35 Body mass index [BMI] 35.0-35.9, adult

== ENCOUNTER → 2019-02-11 | Outpatient (CLI) | payer OTHER ==
[~2019-02-11] MED LIST changes: +IMDUR SA30 MG PO; +METFORMIN XR500 MG PO; +TRULICITY1.5 MG/0.5 SC; +Zestril,Prinivi40 MG PO
[2019-02-11 10:35] LABS: VITAMIN D, 25-HYDROXY 34.2 ng/mL (30-100)
[2019-02-12 11:07] LABS: CREATININE,URINE 72.9 mg/dL (Not Estab.); MICRO ALBUMIN/CRE RATIO 16.5 (0.0-30.0)
[2019-02-16 09:06] LABS: ALDOSTERONE/RENIN RATIO 38.2 (0.0-30.0); RENIN ACTIVITY (PLASMA) 0.217 ng/mL/hr (0.167-5.380)
[2019-02-17 06:07] LABS: METANEPHRINE, PLASMA <10 pg/mL (0-62); NORMETANEPHRINE, PLASMA 54 pg/mL (0-145)
== END | disposition home or self-care (01) ==
LOC: LAB 08:25
PROVIDERS: Internal Medicine Endocrinology, Diabetes & Metabolism
DX: D35.00 Benign neoplasm of unspecified adrenal gland (principal); E55.9 Vitamin D deficiency, unspecified; E53.8 Deficiency of other specified B group vitamins; E11.65 Type 2 diabetes mellitus with hyperglycemia

== ENCOUNTER → 2019-06-25 | Outpatient (CLI) | payer OTHER ==
[2019-06-25 14:31] LABS: BASO # 0.1 10*3/uL (0.0-0.1); BASO % 0.6 % (0.0-1.0); EOS # 0.2 10*3/uL (0.0-0.4); EOS % 2.8 % (1.0-4.0); HEMATOCRIT 43.3 % (37.0-47.0); HEMOGLOBIN 13.8 g/dl (12.0-16.0); LYMPH # 2.1 10*3/uL (1.3-4.4); LYMPH % 25.2 % (27.0-41.0); MEAN CELL VOLUME 88.7 fl (81.0-99.0); MEAN CORPUSCULAR HGB 28.3 pg (27.0-31.0); MEAN CORPUSCULAR HGB CONC 31.9 g/dl (33.0-37.0); MEAN PLATELET VOLUME 10.9 fl (9.6-12.3); MONO # 0.7 10*3/uL (0.1-1.0); MONO % 7.8 % (3.0-9.0); NEUT # 5.3 10*3/uL (2.3-7.9); NEUT % 63.1 % (47.0-73.0); PLATELET COUNT AUTOMATED 200 10*3/uL (130-400); RED BLOOD COUNT 4.88 10*6/uL (4.10-5.10); RED CELL DISTRI WIDTH 13.6 % (0-14.5); RETICULOCYTE % 1.48 % (0.50-2.50); WHITE BLOOD COUNT 8.4 10*3/uL (4.8-10.8)
[2019-06-25 14:52] LABS: COLOR STRAW (YELLOW)
[2019-06-25 14:53] LABS: BACTERIA 1+; BILIRUBIN NEGATIVE (NEGATIVE); BLOOD NEGATIVE (NEGATIVE); CLARITY SL CLOUDY (CLEAR); GLUCOSE NEGATIVE (NEGATIVE); KETONE NEGATIVE (NEGATIVE); LEUKO ESTERASE NEGATIVE (NEGATIVE); NITRITE NEGATIVE (NEGATIVE); RBC 0-2 rbc/hpf (0-2); SPECIFIC GRAVITY 1.005 (1.005-1.030); UROBILINOGEN 0.2 E.U./dl (0.2-1.0); WBC 0-2 wbc/hpf (0-5)
[2019-06-25 15:02] LABS: ALBUMIN 3.6 gm/dl (3.1-4.5); ALKALINE PHOSPHATASE 114 U/L (45-117); BUN 20 mg/dl (7-24); CHLORIDE 108 mmol/L (98-107); CHOLESTEROL 129 mg/dL (<200); CREATININE 0.84 mg/dL (0.55-1.02); GAMMA GLUTAMYL TRANSPEPTIDASE 23 U/L (5-55); HDL CHOLESTEROL 36 mg/dl (40-60); IRON 63 ug/dL (50-170); LDL CHOLESTEROL 70 mg/dL (9-159); POTASSIUM 4.2 mmol/L (3.5-5.1); SGOT/AST 9 IU/L (3-35); SGPT/ALT 21 U/L (12-78); SODIUM 140 mmol/L (136-145); TOTAL IRON BINDING CAPACITY 404 ug/dl (250-450); TRIGLYCERIDES 116 mg/dl (<150); VLDL CHOLESTEROL 23 mg/dL (6-40)
[2019-06-25 15:09] LABS: CPK 92 U/L (26-192)
[2019-06-25 15:20] LABS: VITAMIN D, 25-HYDROXY 45.7 ng/mL (30-100)
[2019-06-25 15:21] LABS: FERRITIN 19.6 ng/mL (10.0-291.0)
== END | disposition home or self-care (01) ==
LOC: CT 06-01 08:00 → LAB 12:36 → CT 13:00
PROVIDERS: Family Medicine
DX: D35.00 Benign neoplasm of unspecified adrenal gland (principal); I70.0 Atherosclerosis of aorta; K76.0 Fatty (change of) liver, not elsewhere classified; K82.0 Obstruction of gallbladder; D35.02 Benign neoplasm of left adrenal gland; D35.01 Benign neoplasm of right adrenal gland; R79.89 Other specified abnormal findings of blood chemistry; R53.83 Other fatigue; E78.5 Hyperlipidemia, unspecified; R74.8 Abnormal levels of other serum enzymes; E55.9 Vitamin D deficiency, unspecified

== ENCOUNTER 2019-08-13 21:09 | Inpatient (IN) | payer OTHER ==
[~2019-08-13] VITALS: Ht 154.9 cm; Wt 88.9 kg
[2019-08-13 21:14] VITALS: BP 132/46
[2019-08-13 21:49] LABS: BASO # 0.1 10*3/uL (0.0-0.1); BASO % 0.7 % (0.0-1.0); EOS # 0.3 10*3/uL (0.0-0.4); EOS % 3.2 % (1.0-4.0); HEMATOCRIT 41.4 % (37.0-47.0); LYMPH # 2.3 10*3/uL (1.3-4.4); LYMPH % 26.2 % (27.0-41.0); MEAN CELL VOLUME 88.1 fl (81.0-99.0); MEAN CORPUSCULAR HGB 28.3 pg (27.0-31.0); MEAN CORPUSCULAR HGB CONC 32.1 g/dl (33.0-37.0); MEAN PLATELET VOLUME 9.9 fl (9.6-12.3); MONO # 0.8 10*3/uL (0.1-1.0); MONO % 8.7 % (3.0-9.0); NEUT # 5.4 10*3/uL (2.3-7.9); NEUT % 60.6 % (47.0-73.0); PLATELET COUNT AUTOMATED 192 10*3/uL (130-400); RED CELL DISTRI WIDTH 14.4 % (0-14.5); WHITE BLOOD COUNT 8.8 10*3/uL (4.8-10.8)
[2019-08-13 22:01] LABS: ACT PARTIAL THROMBO TIME 25.9 SECONDS (20.0-32.1); INTERNATIONAL NORM RATIO 0.9 (2.0-3.5)
[2019-08-13 22:11] LABS: ALBUMIN 3.5 gm/dl (3.1-4.5); ALKALINE PHOSPHATASE 111 U/L (45-117); BUN 17 mg/dl (7-24); CHLORIDE 106 mmol/L (98-107); CREATININE 1.22 mg/dL (0.55-1.02); SGOT/AST 14 IU/L (3-35); SGPT/ALT 24 U/L (12-78); SODIUM 135 mmol/L (136-145); TOTAL PROTEIN 6.7 gm/dL (6.4-8.2)
[2019-08-13 22:26] LABS: TROPONIN I < 0.015 ng/ml (<0.045)
[2019-08-13 22:32] LABS: BILIRUBIN NEGATIVE (NEGATIVE); CLARITY CLEAR (CLEAR); COLOR YELLOW (YELLOW); GLUCOSE 3+ (NEGATIVE); KETONE NEGATIVE (NEGATIVE)
[2019-08-13 22:33] LABS: BLOOD NEGATIVE (NEGATIVE); LEUKO ESTERASE NEGATIVE (NEGATIVE); NITRITE NEGATIVE (NEGATIVE); SPECIFIC GRAVITY 1.015 (1.005-1.030); UROBILINOGEN 0.2 E.U./dl (0.2-1.0)
[2019-08-13 22:44] LABS: BACTERIA TRACE; RBC 0-2 rbc/hpf (0-2); WBC 0-2 wbc/hpf (0-5)
[2019-08-13 23:27] VITALS: BP 136/48
[2019-08-14 00:25] VITALS: BP 159/58
--- NOTE | 2019-08-14 00:25 | NUR ---
A 64, admitted to , under the services of ADAL Tan DO with a diagnosis of SYNCOPE. Chief complaint is DIZZINESS. Patient arrived via stretcher from ER. Monitor applied. Initial assessment completed. Vital signs taken and recorded. ADAL TAN DO notified of admission to the unit. Orders received. See assessment for past medical history, medications and allergies. Patient and/or family oriented to unit. [facility]TH FLOOR visitation policy reviewed. Clothing/patient valuable form completed. JOCEILNE LEGGETT
[2019-08-14] MEDS ORDERED: JARDIANCE25 MG PO (00:54)
[2019-08-14] MEDS ORDERED: CITALOPRAM HYDR40 MG PO (00:57)
[2019-08-14] MEDS ORDERED: VENTOLIN 02.5 MG/3 M INH (00:58)
[2019-08-14 08:00] VITALS: BP 135/59
--- NOTE | 2019-08-14 11:03 | NUR ---
Discharge instructions reviewed with patient/family. Patient receptive and verbalizes understanding. Follow-up care arranged. Written instructions given to patient/family. JO ANN HEWITT
== END 2019-08-14 11:03 | disposition home or self-care (01) | DRG 426 ==
LOC: ED 21:09 → EDHOLD 23:23 → 4E 23:50
PROVIDERS: Emergency Medicine Emergency Medical Services; ADMIT Internal Medicine
DX: E87.1 Hypo-osmolality and hyponatremia (principal); N17.0 Acute kidney failure with tubular necrosis; R42 Dizziness and giddiness; E11.69 Type 2 diabetes mellitus with other specified complication; K21.9 Gastro-esophageal reflux disease without esophagitis; J44.9 Chronic obstructive pulmonary disease, unspecified; J96.10 Chronic respiratory failure, unspecified whether with hypoxia or hypercapnia; E66.9 Obesity, unspecified; R91.1 Solitary pulmonary nodule; E11.42 Type 2 diabetes mellitus with diabetic polyneuropathy; E78.00 Pure hypercholesterolemia, unspecified; Z79.4 Long term (current) use of insulin; Z68.37 Body mass index [BMI] 37.0-37.9, adult; Z88.8 Allergy status to other drugs, medicaments and biological substances; Z88.6 Allergy status to analgesic agent; Z91.018 Allergy to other foods; Z79.82 Long term (current) use of aspirin; Z79.899 Other long term (current) drug therapy; Z79.84 Long term (current) use of oral hypoglycemic drugs; Z90.710 Acquired absence of both cervix and uterus; Z98.49 Cataract extraction status, unspecified eye; F17.210 Nicotine dependence, cigarettes, uncomplicated; Z82.49 Family history of ischemic heart disease and other diseases of the circulatory system; Z80.0 Family history of malignant neoplasm of digestive organs; F32.9 Major depressive disorder, single episode, unspecified; I10 Essential (primary) hypertension; Z85.3 Personal history of malignant neoplasm of breast; Z92.3 Personal history of irradiation; Z99.81 Dependence on supplemental oxygen

== ENCOUNTER 2019-10-09 10:32 | Emergency (ER) | payer OTHER ==
[~2019-10-09] VITALS: Ht 154.9 cm; Wt 88.9 kg
[~2019-10-09 10:32] MED LIST changes: +CITALOPRAM HYDR40 MG PO; +JARDIANCE25 MG PO; +VENTOLIN 02.5 MG/3 M INH
== END 2019-10-09 11:00 | disposition home or self-care (01) ==
LOC: ED 10:32
DX: N64.4 Mastodynia (principal); I10 Essential (primary) hypertension; K21.9 Gastro-esophageal reflux disease without esophagitis; J44.9 Chronic obstructive pulmonary disease, unspecified; F41.9 Anxiety disorder, unspecified; E78.00 Pure hypercholesterolemia, unspecified; F32.9 Major depressive disorder, single episode, unspecified; F17.200 Nicotine dependence, unspecified, uncomplicated; Z88.8 Allergy status to other drugs, medicaments and biological substances; Z91.041 Radiographic dye allergy status; Z91.018 Allergy to other foods; Z79.899 Other long term (current) drug therapy

== ENCOUNTER → 2019-10-21 | Outpatient (CLI) | payer OTHER | END | disposition home or self-care (01) | LOC: MAMMO 10-14 08:30 | DX: N63.21 Unspecified lump in the left breast, upper outer quadrant (principal); C50.919 Malignant neoplasm of unspecified site of unspecified female breast ==

== ENCOUNTER → 2020-01-06 | Outpatient (CLI) | payer OTHER ==
[2020-01-06 13:40] LABS: BASO % 0.4 % (0.0-1.0); EOS # 0.2 10*3/uL (0.0-0.4); EOS % 1.9 % (1.0-4.0); LYMPH # 2.7 10*3/uL (1.3-4.4); LYMPH % 25.2 % (27.0-41.0); MEAN CELL VOLUME 86.5 fl (81.0-99.0); MEAN CORPUSCULAR HGB 28.3 pg (27.0-31.0); MEAN CORPUSCULAR HGB CONC 32.7 g/dl (33.0-37.0); MEAN PLATELET VOLUME 11.2 fl (9.6-12.3); MONO % 8.9 % (3.0-9.0); NEUT # 6.7 10*3/uL (2.3-7.9); PLATELET COUNT AUTOMATED 214 10*3/uL (130-400); RED BLOOD COUNT 4.74 10*6/uL (4.10-5.10); RED CELL DISTRI WIDTH 14.7 % (0-14.5); RETICULOCYTE % 1.89 % (0.50-2.50); WHITE BLOOD COUNT 10.7 10*3/uL (4.8-10.8)
[2020-01-06 14:11] LABS: THYROID STIM HORMONE (HS) 1.01 uIU/ml (0.358-4.75)
[2020-01-06 14:12] LABS: BILIRUBIN NEGATIVE; BLOOD NEGATIVE (NEGATIVE); CLARITY CLOUDY (CLEAR); COLOR YELLOW (YELLOW); GLUCOSE 3+; KETONE NEGATIVE; LEUKO ESTERASE TRACE (NEGATIVE); NITRITE POSITIVE (NEGATIVE); SPECIFIC GRAVITY > 1.030 (1.001-1.030)
[2020-01-06 14:16] LABS: BACTERIA 4+; WBC 21-30 wbc/hpf (0-5); YEAST 1+
[2020-01-06 15:08] LABS: FERRITIN 27.3 ng/mL (10.0-291.0)
== END | disposition home or self-care (01) ==
LOC: LAB 12:42
PROVIDERS: ATTEND Family Medicine
DX: E55.9 Vitamin D deficiency, unspecified (principal); R79.89 Other specified abnormal findings of blood chemistry; R53.83 Other fatigue

== ENCOUNTER 2020-05-21 16:04 | Emergency (ER) | payer OTHER ==
[~2020-05-21] VITALS: Ht 154.9 cm; Wt 90.3 kg
[2020-05-21 16:52] LABS: BASO % 0.5 % (0.0-1.0); EOS # 0.2 10*3/uL (0.0-0.4); EOS % 2.1 % (1.0-4.0); HEMATOCRIT 43.1 % (37.0-47.0); LYMPH % 24.5 % (27.0-41.0); MEAN CELL VOLUME 87.2 fl (81.0-99.0); MEAN CORPUSCULAR HGB 27.7 pg (27.0-31.0); MEAN CORPUSCULAR HGB CONC 31.8 g/dl (33.0-37.0); MEAN PLATELET VOLUME 11.2 fl (9.6-12.3); MONO # 0.5 10*3/uL (0.1-1.0); MONO % 6.6 % (3.0-9.0); NEUT # 5.3 10*3/uL (2.3-7.9); NEUT % 65.7 % (47.0-73.0); PLATELET COUNT AUTOMATED 219 10*3/uL (130-400); RED BLOOD COUNT 4.94 10*6/uL (4.10-5.10); RED CELL DISTRI WIDTH 13.7 % (0-14.5)
[2020-05-21 17:11] LABS: ALBUMIN 3.6 gm/dl (3.1-4.5); ALKALINE PHOSPHATASE 94 U/L (45-117); BUN 21 mg/dl (7-24); CHLORIDE 102 mmol/L (98-107); LIPASE 196 U/L (73-393); SGOT/AST 11 IU/L (3-35); SGPT/ALT 22 U/L (12-78); SODIUM 135 mmol/L (136-145); TOTAL PROTEIN 6.9 gm/dL (6.4-8.2)
[2020-05-21 18:37] LABS: BILIRUBIN Negative (Negative); BLOOD Negative (Negative); CLARITY Clear (Clear); COLOR Yellow (Yellow); GLUCOSE 3+ (Negative); KETONE Trace (Negative); LEUKO ESTERASE Negative (Negative); NITRITE Positive (Negative); SPECIFIC GRAVITY 1.025 (1.001-1.030)
[2020-05-21 18:45] LABS: BACTERIA 3+; EPITHELIAL CELLS 16-20
== END 2020-05-21 21:19 | disposition home or self-care (01) ==
LOC: ED 16:04
PROVIDERS: Nurse Practitioner Family
DX: R11.2 Nausea with vomiting, unspecified (principal); F17.210 Nicotine dependence, cigarettes, uncomplicated; Z79.899 Other long term (current) drug therapy; Z91.041 Radiographic dye allergy status; Z88.6 Allergy status to analgesic agent; Z88.8 Allergy status to other drugs, medicaments and biological substances; Z79.82 Long term (current) use of aspirin

== ENCOUNTER 2020-06-03 15:01 | Emergency (ER) | payer OTHER ==
[~2020-06-03] VITALS: Ht 154.9 cm; Wt 86.6 kg
== END 2020-06-03 17:22 | disposition home or self-care (01) ==
LOC: ED 15:01
DX: M19.032 Primary osteoarthritis, left wrist (principal); I10 Essential (primary) hypertension; K21.9 Gastro-esophageal reflux disease without esophagitis; J44.9 Chronic obstructive pulmonary disease, unspecified; F41.9 Anxiety disorder, unspecified; E78.00 Pure hypercholesterolemia, unspecified; E11.9 Type 2 diabetes mellitus without complications; F32.9 Major depressive disorder, single episode, unspecified; F17.210 Nicotine dependence, cigarettes, uncomplicated; Z91.041 Radiographic dye allergy status; Z88.8 Allergy status to other drugs, medicaments and biological substances; Z91.018 Allergy to other foods; Z79.899 Other long term (current) drug therapy; Z79.4 Long term (current) use of insulin; Z79.82 Long term (current) use of aspirin; Z90.711 Acquired absence of uterus with remaining cervical stump; Z98.890 Other specified postprocedural states; Z90.49 Acquired absence of other specified parts of digestive tract

== ENCOUNTER 2020-06-12 10:12 | Emergency (ER) | payer OTHER ==
[~2020-06-12] VITALS: Wt 86.6 kg
[2020-06-12 11:01] LABS: BASO % 0.3 % (0.0-1.0); EOS # 0.1 10*3/uL (0.0-0.4); EOS % 1.8 % (1.0-4.0); HEMATOCRIT 41.5 % (37.0-47.0); LYMPH # 0.9 10*3/uL (1.3-4.4); LYMPH % 12.5 % (27.0-41.0); MEAN CELL VOLUME 86.1 fl (81.0-99.0); MEAN CORPUSCULAR HGB CONC 32.5 g/dl (33.0-37.0); MEAN PLATELET VOLUME 10.2 fl (9.6-12.3); MONO # 0.8 10*3/uL (0.1-1.0); MONO % 10.9 % (3.0-9.0); NEUT # 5.4 10*3/uL (2.3-7.9); PLATELET COUNT AUTOMATED 212 10*3/uL (130-400); RED BLOOD COUNT 4.82 10*6/uL (4.10-5.10); RED CELL DISTRI WIDTH 13.8 % (0-14.5); WHITE BLOOD COUNT 7.3 10*3/uL (4.8-10.8)
[2020-06-12 11:15] LABS: ALBUMIN 3.2 gm/dl (3.1-4.5); ALKALINE PHOSPHATASE 98 U/L (45-117); BUN 25 mg/dl (7-24); CHLORIDE 106 mmol/L (98-107); CREATININE 0.91 mg/dL (0.55-1.02); LIPASE 162 U/L (73-393); POTASSIUM 3.9 mmol/L (3.5-5.1); SGOT/AST 6 IU/L (3-35); SGPT/ALT 24 U/L (12-78); SODIUM 138 mmol/L (136-145); TOTAL PROTEIN 6.8 gm/dL (6.4-8.2)
== END 2020-06-12 12:17 | disposition home or self-care (01) ==
LOC: ED 10:12
PROVIDERS: Physician Assistant
DX: R10.84 Generalized abdominal pain (principal); I10 Essential (primary) hypertension; K21.9 Gastro-esophageal reflux disease without esophagitis; J44.9 Chronic obstructive pulmonary disease, unspecified; E78.00 Pure hypercholesterolemia, unspecified; F17.200 Nicotine dependence, unspecified, uncomplicated; Z88.8 Allergy status to other drugs, medicaments and biological substances; Z79.899 Other long term (current) drug therapy; Z79.4 Long term (current) use of insulin; Z90.710 Acquired absence of both cervix and uterus; Z98.890 Other specified postprocedural states

== ENCOUNTER 2020-06-27 09:02 | Emergency (ER) | payer OTHER ==
[~2020-06-27] VITALS: Ht 152.4 cm
[2020-06-27 09:28] LABS: BASO % 0.4 % (0.0-1.0); EOS # 0.1 10*3/uL (0.0-0.4); HEMATOCRIT 43.7 % (37.0-47.0); LYMPH # 1.4 10*3/uL (1.3-4.4); LYMPH % 12.7 % (27.0-41.0); MEAN CELL VOLUME 86.4 fl (81.0-99.0); MEAN CORPUSCULAR HGB 28.1 pg (27.0-31.0); MEAN CORPUSCULAR HGB CONC 32.5 g/dl (33.0-37.0); MEAN PLATELET VOLUME 10.4 fl (9.6-12.3); NEUT # 8.3 10*3/uL (2.3-7.9); NEUT % 76.3 % (47.0-73.0); PLATELET COUNT AUTOMATED 274 10*3/uL (130-400); RED BLOOD COUNT 5.06 10*6/uL (4.10-5.10); WHITE BLOOD COUNT 10.9 10*3/uL (4.8-10.8)
[2020-06-27 09:39] LABS: ACT PARTIAL THROMBO TIME 21.4 SECONDS (20.0-32.1)
[2020-06-27 09:50] LABS: ALBUMIN 3.1 gm/dl (3.1-4.5); ALKALINE PHOSPHATASE 102 U/L (45-117); BUN 36 mg/dl (7-24); CHLORIDE 105 mmol/L (98-107); LIPASE 140 U/L (73-393); POTASSIUM 4.5 mmol/L (3.5-5.1); SGOT/AST 4 IU/L (3-35); SGPT/ALT 22 U/L (12-78); SODIUM 136 mmol/L (136-145); TOTAL PROTEIN 7.1 gm/dL (6.4-8.2)
[2020-06-27 09:52] LABS: TROPONIN I < 0.015 ng/ml (<0.045)
[2020-06-27 11:44] LABS: BILIRUBIN Negative (Negative); BLOOD Negative (Negative); CLARITY Clear (Clear); COLOR Yellow (Yellow); GLUCOSE 3+ (Negative); KETONE Negative (Negative); LEUKO ESTERASE Negative (Negative); NITRITE Negative (Negative); PH 5.5 (4.5-8.0); SPECIFIC GRAVITY >= 1.030 (1.001-1.030)
[2020-06-27 12:06] LABS: EPITHELIAL CELLS 0-2; WBC 0-2 wbc/hpf (0-5); YEAST 4+
== END 2020-06-27 18:40 | disposition short-term general hospital (02) ==
LOC: ED 09:02
PROVIDERS: Emergency Medicine
DX: C48.1 Malignant neoplasm of specified parts of peritoneum (principal); I10 Essential (primary) hypertension; K21.9 Gastro-esophageal reflux disease without esophagitis; J44.9 Chronic obstructive pulmonary disease, unspecified; F41.9 Anxiety disorder, unspecified; E78.00 Pure hypercholesterolemia, unspecified; F32.9 Major depressive disorder, single episode, unspecified; F17.200 Nicotine dependence, unspecified, uncomplicated; Z88.8 Allergy status to other drugs, medicaments and biological substances; Z91.018 Allergy to other foods; Z79.899 Other long term (current) drug therapy; Z79.82 Long term (current) use of aspirin; Z98.890 Other specified postprocedural states; Z90.711 Acquired absence of uterus with remaining cervical stump